=== PATIENT | female | born 1950 | race Caucasian/White ===

== ENCOUNTER → 2017-10-02 | Day surgery (SDC) | payer MEDICARE, BC ==
[~2017-10-02] MED LIST: Lactated Ringers 1,000 ML IV SCH; Propofol 200 MG/20 ML SDV IV ONE
--- NOTE | 2017-10-02 14:33 | OR ---
DATE OF OPERATION: 10/02/2017 PREOPERATIVE DIAGNOSIS: SCREENING COLONOSCOPY. POSTOPERATIVE DIAGNOSIS: SCREENING COLONOSCOPY. SURGEON: Rl Cuevas MD PROCEDURE: FULL-LENGTH COLONOSCOPY. ANESTHESIA: REAL ESTATE LISTING CONSULTANT. COMPLICATIONS: None. SPECIMEN: None. FINDINGS: Normal full length colonoscopy. RECOMMENDATIONS: Followup colonoscopy every 10 years. INDICATIONS: Ms. Eli was in for a routine physical. It has been 11 years since her last colonoscopy. Stefani sent her for a screening procedure. DESCRIPTION OF PROCEDURE: The patient was prepped and draped, placed in the left lateral decubitus position. A lubricated Olympus colonoscope was inserted and easily advanced to the cecum. The patient is quite tortuous but scope passes fine. We were able to directly visualize the ileocecal valve and appendiceal orifice. The bowel prep was excellent. Upon withdrawal of the scope, throughout the entire length of the colon, I could find no signs of polyps, mass, ulceration, or bleeding sites. No vascular abnormalities or signs of colitis. There were no diverticula. The rectal vault was benign. Retroflexion showed no perianal lesions other than vascularity. Air was suctioned, scope removed without complication. TOMMY/OLLIE /[id number]
== END ==
LOC: CC.SDS 09:21
PROVIDERS: ATTEND Family Medicine
DX: Z12.11 Encounter for screening for malignant neoplasm of colon (principal)
CPT/HCPCS: G0121; J7120